=== PATIENT | female | born 1955 | race Caucasian/White ===

== ENCOUNTER 2019-04-12 11:01 | Emergency (ER) | payer OTHER ==
[~2019-04-12] VITALS: Ht 157.5 cm; Wt 56.7 kg
[2019-04-12] MEDS ORDERED: TOPROL XL25 M1 PO (11:10)
[2019-04-12] MEDS ORDERED: FORTAMET500 MG PO (11:10)
[2019-04-12] MEDS ORDERED: ABILIFY10 MG PO (11:11)
[2019-04-12] MEDS ORDERED: FENOFIBRATE40 MG PO (11:11)
[2019-04-12] MEDS ORDERED: PRISTIQ ER100 MG (11:11)
[2019-04-12] MEDS ORDERED: CLONAZEPAM0.5 M1 (11:12)
== END 2019-04-12 14:06 | disposition home or self-care (01) ==
LOC: ER 11:01
DX: R42 Dizziness and giddiness (principal)